=== PATIENT | female | born 1990 | race Hispanic/Latino ===

== ENCOUNTER 2018-07-29 01:52 | Inpatient (IN) | payer SELFPAY ==
[2018-07-29] MEDS ORDERED: CARBOPROST TROME 250 MCG/ML IM PRN (02:54)
[2018-07-29] MEDS ORDERED: Ringers Lactate 1,000 ML IV PRN (02:54)
[2018-07-29] MEDS ORDERED: METHYLERGONOVINE 0.2MG/ML AMP IM PRN (02:54)
[2018-07-29] MEDS ORDERED: NA CIT/CITRIC AC 30 ML ORAL UDC PO ONE (02:57)
[2018-07-29] MEDS ORDERED: FAMOTIDINE 20 MG/2 ML VIAL IV ONE (02:58)
[2018-07-29] MEDS ORDERED: CEFAZOLIN 2 GM in NA CHLORIDE 0.9% 20 ML IVPB SCH (03:00)
[2018-07-29] MEDS ORDERED: Ringers Lactate 1,000 ML IV SCH (03:00)
[2018-07-29] MEDS ORDERED: METOCLOPRAMIDE 10 MG/2mL INJ IV SCH (03:00)
[2018-07-29] MEDS ORDERED: OXYTOCIN/LR 20 UNIT/1,000 ML BAG IV SCH (03:00)
[2018-07-29 03:10] LABS: RPR Titer ND
[2018-07-29 03:15] LABS: Absolute Lymphocytes (CBC) 2.7 K/uL (0.7-4.9); Absolute Monocytes 0.9 K/uL (0.1-1.3); Absolute Neutrophil 7.1 K/uL (1.8-8.0); Basophils % 0.2 % (0-1.3); Eosinophils % 1.3 % (0-4.4); Hematocrit 36.2 % (36.0-45.0); Lymphocytes % 25.2 % (15.3-44.8); MPV 9.2 fL (7.6-11.3); Monocytes % 8.4 % (3.3-12.3)
[2018-07-29 03:17] VITALS: BMI 28.8
[2018-07-29 03:19] LABS: Urine Appearance CLEAR; Urine Bilirubin NEGATIVE (NEG); Urine Blood NEGATIVE (NEG); Urine Color YELLOW; Urine Glucose NEGATIVE (NEG); Urine Protein NEGATIVE (NEG); Urine Urobilinogen 0.2 mg/dL (0.2-1.0)
[2018-07-29 03:23] LABS: Urine Microscopic Reflex NO UMIC
[2018-07-29] MEDS ORDERED: CEFAZOLIN/SWI 2gm 2 GM/20 ML SYR ONE (03:29)
[2018-07-29] MEDS ORDERED: MORPHINE SULFATE/PF 1 MG/ML (10 ML AMP) ONE (03:56)
[2018-07-29] MEDS ORDERED: LIDOCAINE 1% MPF 5 ML VIAL ONE (03:57)
[2018-07-29] MEDS ORDERED: OXYTOCIN 10 UNIT/ML ML IV ONE (04:21)
[2018-07-29] MEDS ORDERED: EPHEDRINE SULF 50 MG/ML VIAL ONE (04:34)
[2018-07-29] MEDS ORDERED: ONDANSETRON 4 MG/2 ML VIAL ONE (04:36)
[2018-07-29] MEDS ORDERED: BUPIVACAINE 0.5% PF 10 ML VIAL ONE (04:48)
[2018-07-29] MEDS ORDERED: Oxycodone HCl/Acetaminophen 1 TAB TAB PO PRN (04:58)
[2018-07-29] MEDS ORDERED: DOCUSATE NA/SENNA CONC 1 TAB PO PRN (04:58)
[2018-07-29] MEDS ORDERED: ACETAMINOPHEN 500 MG TAB PO PRN (04:58)
[2018-07-29] MEDS ORDERED: ONDANSETRON 4 MG (ODT) TAB PO PRN (04:58)
[2018-07-29] MEDS ORDERED: METHYLERGONOVINE 0.2 MG TAB PO PRN (04:58)
--- NOTE | 2018-07-29 05:07 | P.OP ---
Neurology Epilepsy Physician: Alva Clifton Preoperative diagnosis: Term , prior x3, in labor Postoperative diagnosis: same Primary procedure: Repeat low transverse section Secondary procedure: lysis of adhesions Estimated blood loss: 800cc Specimen: cord blood, placenta Findings: female , vertex presentation APGARS 8/9 Weight 6 lb 13 oz Operative Technique: After informed consent was obtained, the patient was brought back to the operative suite where adequate spinal anesthesia was obtained. The patient was then placed in the dorsal supine position and prepped and draped in the sterile fashion. A repeat Pfannenstiel skin incision was made with a blade and carried down through the subcutaneous tissues to the fascia, which was extended in the transverse fascia with Tapia scissors. The fascial incision was then dissected off the rectus muscles both bluntly and sharply. The rectus muscles were difficult to visualize due to the extensive adhesions.The peritoneum was entered bluntly. The peritoneal incision was then extended both superiorly and inferiorly with good visualization of the underlying bladder. The bladder blade was placed, and the vesicouterine fascia was incised to create a bladder flap in a low transverse position. This was developed digitally. A low transverse uterine incision was made with the blade and carried down through the layers of the uterus until membranes bulged through the incision. The uterine incision was then extended digitally. Hand was placed inside the pelvis, and the head was brought up out of the pelvis and delivered atraumatically with gentle fundal pressure. Prior to the head being delivered, actually through the skin, the sound of the baby starting to cry was noted. After the head was delivered, the mouth and nares were aggressively bulb suctioned. Remainder of the infant was delivered, and the infant was passed to the awaiting nursing staff for additional care. Cord was doubly clamped and cut and cord blood was obtained. The placenta was then manually extracted, and the uterus was not exteriorized. The uterus was cleaned of remaining clot. The uterine incision was readily identified and closed in two layers, first one with running locking followed by second imbricating layer of 0 Vicryl. The fascia was closed with 1 Vicryl from one angle to the midline and then repeated from the other angle. Subcutaneous tissues were copiously irrigated, and final bleeders were cauterized. The subcutaneous tissue was reapproximated with 2.0 plain gut. The skin was reapproximated with a 3.0 vicryl on a Anand needle. Complications: None Drain(s): Urinary catheter Transferred to: Recovery Room Condition: Good
[2018-07-29] MEDS ORDERED: KETOROLAC 30 MG/ML INJ IV PRN (08:25)
[2018-07-29] MEDS ORDERED: IBUPROFEN 400 MG TAB PO SCH (08:25)
[2018-07-29] MEDS ORDERED: IBUPROFEN 400 MG TAB PO PRN (08:26)
--- NOTE | 2018-07-29 13:08 | HP ---
Date of Admission: 07/29/2018 She is a 27-year-old, 4, para 3-0-0-3, who presents at 39 weeks gestation in active labor wit h history of 3 prior sections. The patient has obtained care with Dr. Ellis since April 18, where it appears she had transferred care from [place]. records rev iewed. The patient is Rh positive. Quad screen is negative. Denies any medical issues. c are appears routine. There were some notes that indicate she had a ultrasound with a posterior place nta. The patient denies vaginal bleeding. No leakage of fluid. Reports good movement. She h as been having contractions throughout the night. Upon presentation to labor and delivery, she is fo und to be 2 cm dilated, 60% effaced, -3 station. Past Medical History: Negative. Past Surgical History: Includes 3 prior sections. Two were done in [place] and 1 in [place] . Family History: Noncontributory. Social History: No tobacco, alcohol, or drug use. She is . Physical Examination: Vital Signs: On admission, blood pressure 129/44, pulse of 60, respirations 20, temperature 97.2. General: The patient in bed, in moderate pain distress. Head and Neck: Normocephalic, atraumatic. Heart: Regular rate and rhythm. Respiratory: Symmetric, nonlabored breathing. Abdomen: Gravid. Extremities: Bilateral lower extremities, no clubbing, cyanosis, or edema. Vaginal: Normal external female genitalia. Vagina is pink and moist. Cervix 2 cm dilated, 60% effa stephanie. heart rate monitoring, baseline heart rate 120, moderate variability, category 2 tr acing. [place], contractions every 2 to 3 minutes. Assessment And Plan: Malathi is a 27-year-old, 4, para 3-0-0-3 at 39 weeks gestation with h istory of 3 prior sections who presents in active labor. Plan is to perform a repeat sean an section. Ancef will be given prior to incision. Routine care. MAGDY Voice ID: [id number]
[2018-07-30] MEDS: Oxycodone HCl/Acetaminophen 1 TAB TAB PO PRN (01:45)
[2018-07-30 04:51] LABS: Absolute Lymphocytes (CBC) 2.4 K/uL (0.7-4.9); Absolute Monocytes 1.1 K/uL (0.1-1.3); Absolute Neutrophil 11.8 K/uL (1.8-8.0); Basophils % 0.1 % (0-1.3); Eosinophils % 1.1 % (0-4.4); Hematocrit 34.5 % (36.0-45.0); Lymphocytes % 15.6 % (15.3-44.8); MPV 9.2 fL (7.6-11.3); RBC Red Blood Cell Count 3.86 M/uL (3.86-4.86)
--- NOTE | 2018-07-30 08:42 | PN ---
A 27-year-old multiparous female, 3 previous sections, scheduled for section tomorr ow. Came in yesterday morning in labor and was delivered by Dr. Zapata. Uneventful low transverse ce sarean section. Postoperatively afebrile, ambulating, voiding. Lochia is normal. We will observe h er today, send her home tomorrow. H and H with minimal change. No post spinal block problems. No p roblems reported by the patient all this morning. She looks quite good and should be ready for dismi ssal tomorrow. Full instructions given. We will go over it again tomorrow. CHRISTINE/EVELIO Voice ID: [id number] Report ID: [id number]
[2018-07-30 23:14] LABS: RPR (Rapid Plasma Reagin) NON-REACT (NON-REACT)
[2018-07-31] MEDS: Oxycodone HCl/Acetaminophen 1 TAB TAB PO PRN (07:19)
[2018-07-31 08:14] VITALS: BP 110/59; TEMP 96.9
--- NOTE | 2018-08-01 01:22 | DS ---
Date of Discharge: 07/31/2018 Hospital Course: This is a 27-year-old female, 4, para 3, with 3 previous C-sections, who wa s delivered by Dr. Zapata in my absence. She underwent low transverse uterine incision. Numerous adh esions were encountered. She was delivered of a 6 pound 13 ounce , Apgars 8 and 9. 800 cc blo od loss. Postoperatively, has remained afebrile, ambulating, voiding, lochia is normal. She will be dismissed later this morning to report back to my office later in the week or early next week for in cision inspection. She is to report any temperature elevation of 100 degrees or greater, severe pain , heavy bleeding, or any other type of abnormalities. Dismissed with tramadol for analgesia, althoug h she may elect to take Motrin instead. No post spinal block headaches noted. She has been offered Tdap immunization multiple times during the . Final Diagnoses: 1.Term intrauterine . 2.Repeat section x4. 3.Spinal block anesthesia. 4.Significant adhesions noted. CHRISTINE/EVELIO Voice ID: [id number] Report ID: [id number]
[2018-08-01 04:12] LABS: HBsAG Nonreactive (Nonreactive)
== END 2018-07-31 10:50 | disposition home or self-care (01) | DRG 794 ==
LOC: L&D 01:52 → 2ND-WC 02:39
PROVIDERS: ADMIT Student in an Organized Health Care Education/Training Program; ATTEND Specialist
PROC: 10D00Z1 Extraction of Products of Conception, Low, Open Approach (ICD-10-PCS; principal; 2018-07-29 04:00)
DX: P03.89 Newborn affected by other specified complications of labor and delivery (principal); Z37.0 Single live birth
CPT/HCPCS: 36415; 81003; 85025; 86592; 86850; 86900; 86901; 87340; 88307; J0690; J2210; J2405; J2590; J2765